=== PATIENT | female | born 1990 | race Caucasian/White ===

== ENCOUNTER 2019-02-10 10:02 | Emergency (ER) | payer MEDICAID ==
[~2019-02-10] VITALS: Ht 170.2 cm; Wt 109.3 kg
[2019-02-10 10:19] VITALS: BP 126/69
== END 2019-02-10 12:21 | disposition home or self-care (01) ==
LOC: ER 10:12
DX: J06.9 Acute upper respiratory infection, unspecified (principal); F12.10 Cannabis abuse, uncomplicated; F17.210 Nicotine dependence, cigarettes, uncomplicated; F11.10 Opioid abuse, uncomplicated; Z60.2 Problems related to living alone
CPT/HCPCS: 87070; 87880; 99283; A4606; 86403-TC

== ENCOUNTER 2019-04-03 21:50 | Emergency (ER) | payer MEDICAID ==
[~2019-04-03] VITALS: Ht 170.2 cm; Wt 111.1 kg
--- NOTE | 2019-04-03 22:00 | NUR ---
PATIENT CAME BIBSELF FOR RIGHT KNEE PAIN 3/10 AT REST AND 7/10 WITH AMBULATION S/P BENDING DOWN TO FOOT AND ANKLE SURGEON HER DOG YESTERDAY.PATIENT STATES SHE HEARD A "POPPING" SOUND . PATIENT CHANGED TO GOWN, PROVIDED WITH WORM BLANCET. AWAITING MD GIRARD.
[2019-04-04 00:04] VITALS: BP 119/77
== END 2019-04-04 00:08 | disposition home or self-care (01) ==
LOC: ER 21:52
DX: M25.561 Pain in right knee (principal); F17.210 Nicotine dependence, cigarettes, uncomplicated; Z60.2 Problems related to living alone
CPT/HCPCS: 73564-TC

== ENCOUNTER 2019-12-10 16:47 | Emergency (ER) | payer MEDICAID, OTHER ==
[~2019-12-10] VITALS: Ht 170.2 cm; Wt 111.1 kg
--- NOTE | 2019-12-10 17:09 | NUR ---
PT AAOX4. AMBULATORY. C/O COUGH, BODY ACHES X 3 DAYS. PLACED ON MONITOR AND PULSE OX. NO ACUTE DISTRESS NOTED.
[2019-12-10] MEDS ORDERED: ACETAMINOPHEN ES 500 MG TABLET ONE (17:44)
[2019-12-10] MEDS ORDERED: IBUPROFEN 600 MG TABLET PO ONE ×2 (17:45→18:00)
[2019-12-10] MEDS ORDERED: ACETAMINOPHEN 325 MG TABLET PO ONE (18:00)
[2019-12-10] MEDS ORDERED: IPRATROPIUM NEB FS 0.5 MG/2.5 ML AMPUL.NEB ONE (18:12)
[2019-12-10] MEDS ORDERED: ALBUTEROL FS 2.5 MG/3 ML VIAL.NEB ONE (18:12)
--- NOTE | 2019-12-10 18:25 | NUR ---
pt recieving breathing treatment
[2019-12-10] MEDS ORDERED: IPRATROPIUM NEB FS 0.5 MG/2.5 ML AMPUL.NEB NEB ONE (18:30)
[2019-12-10] MEDS ORDERED: ALBUTEROL FS 2.5 MG/3 ML VIAL.NEB NEB ONE (18:30)
--- NOTE | 2019-12-10 19:10 | NUR ---
Patient discharged to home in stable condition. Written and verbal after care instructions given. Patient verbalizes understanding of instruction and RX. Pt breathing even and unalbored. VSS.
[2019-12-10 19:11] VITALS: BP 112/74
== END 2019-12-10 19:12 | disposition home or self-care (01) ==
LOC: ER 16:53
DX: J10.1 Influenza due to other identified influenza virus with other respiratory manifestations (principal); J98.01 Acute bronchospasm; R50.9 Fever, unspecified; M79.18 Myalgia, other site; Z87.891 Personal history of nicotine dependence; Z60.2 Problems related to living alone
CPT/HCPCS: 71045-TC

== ENCOUNTER 2025-03-06 14:57 | Emergency (ER) | payer MEDICAID, OTHER ==
[~2025-03-06] VITALS: Ht 170.2 cm; Wt 111.1 kg
[2025-03-06 15:13] VITALS: BP 121/75; TEMP 97.6
[2025-03-06 15:29] VITALS: O2SAT 99
== END 2025-03-06 15:33 | disposition home or self-care (01) ==
LOC: ER 14:59
DX: J06.9 Acute upper respiratory infection, unspecified (principal); F91.0 Conduct disorder confined to family context; F17.200 Nicotine dependence, unspecified, uncomplicated; Z60.2 Problems related to living alone